=== PATIENT | female | born 1965 | race Caucasian/White ===

== ENCOUNTER 2016-07-23 12:08 | Emergency (ER) | payer MEDICAID, MEDICARE ==
[~2016-07-23] VITALS: Ht 165.1 cm; Wt 64.0 kg
[~2016-07-23 12:08] MED LIST: ALBU18HF INH; BUPR150T8 PO; CITA20TA PO; GABA-502 PO; GEMF600T3 PO; METH-313 PO; METO100T3 PO; NORT10CA PO; OMEP40CA3 PO; OXYC-466 PO; PROM25TA14 PO; SUMA20SP NS
[2016-07-23 12:12] VITALS: BP 151/91; PULSE 103; RESP 20; O2SAT 95
--- NOTE | 2016-07-23 13:30 | ED.REPORT ---
HPI-General Illness Date of Service Jul 23, 2016 ED Provider: Andres Sanchez MD 51 y/o female with a hx of HTN, kidney stones, endometriosis, UTIs, back injury and depression presents to the ED complaining of sharp upper ABD pain which worsens upon moving and eating, onset a week ago. Pt went to [facility] for ABD pain and was sent to [facility] after imaging. They were unable to take her gallbladder out and planned to transfer her to [place]. Pt reports that she was not being properly informed about her surgery at [facility], got frustrated and left AMA on Tuesday. Pt denies getting any follow up or surgery-based instructions from [facility]. She reports experiencing cough and subjective fever, which subsided today and denies dysuria. Pt takes Gabapentin and a muscle relaxer for chronic pain. Nursing Notes Stated Complaint: POST SURGERY/SUTURES Chief Complaint: General Complaint Allergies: Coded Allergies: lactose (Verified Allergy, Unknown, Dairy causes GI upset, 03/05/15) Scheduled Chlorthalidone (Chlorthalidone) 25 Mg Tablet 25 MG PO QAM Gabapentin (Gabapentin) 300 Mg Capsule 900 MG PO BIDWM 900 MG IN AM AND NOON, AND 1200 MG AT HS Gabapentin (Gabapentin) 300 Mg Capsule 1,200 MG PO HS 900 MG IN AM AND NOON, AND 1200 MG AT HS Gemfibrozil (Gemfibrozil) 600 Mg Tablet 600 MG PO BID Omeprazole (Omeprazole) 40 Mg Capsule.dr 40 MG PO QAM Scheduled PRN Albuterol Sulfate (Ventolin HFA Inhaler) 200 Puff/18 Gm Inhaler 1 PUFF INH Q4 PRN PRN For Wheezing Aspirin/Acetaminophen/Caffeine (Welhxzp-Cayfhjfkhqjuw-Wcqv Tab) 250 Mg-250 Mg- 65 Mg Tablet 2 EACH PO BID PRN PRN Headache Methocarbamol (Robaxin-750) 750 Mg Tablet 750-1,500 MG PO Q8H PRN PRN MUSCLE SPASMS Metoprolol Tartrate (Metoprolol Tartrate) 100 Mg Tablet 50 MG PO BID PRN PRN HYPERtension Nortriptyline (Nortriptyline) 10 Mg Capsule 10-20 MG PO HS PRN PRN For Insomnia Sumatriptan (Imitrex) 20 Mg [place] 20 MG NS DIRECTED PRN PRN For Headache 1 SPRAY AT ONSET OF MIGRAINE, MAY REPEAT IN 2 HRS IF NEEDED. MAX 2 SPRAYS IN 24 HRS General Time Seen by MD: 13:29 Chief Complaint Abdominal pain Hx Obtained From: Patient Arrived By: Walk-in Sudden in Onset?: No Onset Occurred: 1 week ago Symptom Duration: Since onset Location: : Abdomen Quality: Painful Severity: Current: Moderate Severity: Maximum: Moderate Recent Healthcare: Recent doctor visit, Recent hospitalization, Previous surgery Similar Sx Previous: No Past Medical History Past Medical History Notes: Per old records Past Medical History Kidney stones IBS Depression Endometriosis UTIs Back injury HTN Cholecystitis Reports: Asthma, GERD Past Surgical History Lithotripsy Spinal fusion x6 Liver LAC Ribs R collarbone Bilat Hip Repair Attempted choleocystectomy that was unsuccessful due to abdominal adhesions. Family History Noncontributory Smoking History Current Every Day Smoker, Heavy Tobacco Smoker Social History Alcohol Use: "Social" Drug Use: Other Other Social History: Local resident Ambulatory Status Independent Review of Systems Full Review of Systems Constitutional: Reports: Fever Respiratory: Reports: Non-productive cough GI: Reports: Abdominal pain Female: Denies: Dysuria Complete sys rev & neg: except as marked. Physical Exam Vital Signs Vital Signs Date Time Temp Pulse Resp B/P Pulse Ox O2 Delivery O2 Flow Rate FiO2 07/23/16 15:18 37 85 18 133/68 97 Nasal Cannula 2 07/23/16 12:12 37.3 103 20 151/91 95 Room Air Initial VS: Reviewed, Vital signs normal Head / Eyes: Atraumatic, Normocephalic, PERRL ENT: Mucous membranes moist, Conjunctiva normal, No scleral icterus Neck: Non-tender, Full range of motion Respiratory: Breath sounds normal, Clear to auscultation, No respiratory distress Neurologic: Alert, Oriented, Nonfocal Psychiatric: Mood/affect normal, Behavior normal, Normal thought content General/Constitutional: Awake, Alert, Cooperative, Not toxic appearing Cardiovascular: Heart rate NL, Regular rhythm, Heart sounds NL, No gallop, No murmurs, No rubs Radial pulses good. Abdomen: Soft, Non-tender, No guarding, No rebound Diffuse tenderness in epigastric and upper ABD. Well healed old vertical midline surgical scar. Diffuse ecchymosis on ABD wall. Well healing, closed laparoscopic surgical scars on ABD. No evidence of infection, abscess or cellulitis. Back: Atraumatic, Full range of motion Upper Extremities Upper Extremity / MS: Atraumatic, Full range of motion Lower Extremity / Pelvis / MS: Atraumatic, Full range of motion No calf swelling or tenderness. Skin: Atraumatic, Warm, Dry Interpretation & Diagnostics Lab Results Interpretation Result Diagram: 07/23/16 1550 07/23/16 1550 Test 07/23/16 14:05 07/23/16 15:50 07/23/16 16:11 Magnesium Level 1.5mg/dL (1.6-2.6) Lipase 185U/L (13-60) White Blood Count 9.6th/mm3 (3.8-10.1) Red Blood Count 2.49mil/mm3 (3.90-5.20) Hemoglobin 7.5g/dL (12.0-15.6) Hematocrit 23.5% (35.0-46.0) Mean Corpuscular Volume 94.4fL (81-100) Mean Corpuscular Hemoglobin 30.1pg (27.0-35.0) Mean Corpuscular Hemoglobin Concent 31.9% (32.0-37.0) Red Cell Distribution Width 20.3% (12.3-15.4) Platelet Count 424bil/L (150-400) Neutrophils (%) (Auto) 54.6% (40-74) Lymphocytes (%) (Auto) 28.5% (14-46) Monocytes (%) (Auto) 14.8% (4-12) Eosinophils (%) (Auto) 0.3% (0-5) Basophils (%) (Auto) 0.3% (0-3) Sodium Level 139mEq/L (134-144) Potassium Level 2.2mEq/L (3.5-5.2) Chloride Level 97mEq/L (97-108) Carbon Dioxide Level 30mmol/L (18-29) Blood Urea Nitrogen 2mg/dL (6-24) Creatinine 0.37mg/dL (0.57-1.00) Estimat Glomerular Filtration Rate 263mL/min (>59) Glucose Level 93mg/dL (60-99) Calcium Level 7.9mg/dL (8.5-10.1) Total Bilirubin 1.2mg/dL (0.0-1.2) Aspartate Amino Transf (AST/SGOT) 36U/L (0-50) Alanine Aminotransferase (ALT/SGPT) 24U/L (0-32) Alkaline Phosphatase 127U/L (25-150) Total Protein 5.5g/dL (6.4-8.4) Albumin 2.5g/dL (3.4-5.0) Hold Alves Top Tube Received (Received) Urine Color Yellow (YELLOW) Urine Appearance Clear (CLEAR,HAZY) Urine pH 8.0 (5.0-8.0) Urine Specific Strawberry 1.010 (1.003-1.035) Urine Protein Negativemg/dL (NEG,TRACE) Urine Glucose (UA) Negativemg/dL (NEGATIVE) Urine Ketones Negativemg/dL (NEGATIVE) Urine Occult Blood Negative (NEGATIVE) Urine Nitrite Negative (NEGATIVE) Urine Bilirubin Negative (NEGATIVE) Urine Urobilinogen Normalmg/dL (NORMAL) Urine Leukocyte Esterase Negative (NEGATIVE) Urine RBC 0-2/hpf (0-2) Urine WBC 0-5/hpf (0-5) Urine Epithelial Cells Many/hpf (NONE-MOD) Urine Crystals None seen (NONE SEEN) Urine Bacteria Few/hpf (NONE-FEW) Urine Hyaline Casts None/lpf (NONE) Urine Granular Casts None seen (NONE SEEN) Urine Waxy Casts None seen (NONE SEEN) Urine Red Blood Cell Casts None seen (NONE SEEN) Urine White Blood Cell Casts None seen (NONE SEEN) Urine Mucus None seen (None Seen) Urine Trichomonas None seen (NONE SEEN) Urine Yeast None (NONE SEEN) Urinalysis Comment None Urine Culture Reflexed Not indicated ECG Interpretation ECG Interpretation: Normal sinus rate 88 Left axis deviation No acute ST change Diffuse T wave flattening present No prior ekg for comparison. Time: 15:23 Interpreted by: ED physician X-Ray Chest Interpretation Chest Xray Interpretation: IMPRESSION: Focal opacity in the posterior aspect the left lung base suspicious for pneumonia. Please correlate with clinical and laboratory data. Dictated by: Kendra Lee MD, PhD on 07/23/2016 at 17:34 Interpretation / Wet Read by: Interpret - Radiologist CT Abd / Pelvis Interpretation IMPRESSION: 1. There is peripancreatic stranding and moderate amount of peripancreatic fluid collection consistent with acute pancreatitis. 2. The gallbladder wall appears irregular with mild thickening and demonstrates increased enhancement, suspicious for acute cholecystitis. Common bile duct is dilated. No obstructing stones or masses are identified. 3. There is a masslike structure in the anterior abdomen right of the midline. In the setting of recent surgery, this is most likely a hematoma. 4. Thickened gastric antrum and proximal duodenum, most likely secondary to direct spread of inflammation/infection from acute cholecystitis and pancreatitis. 5. Non-obstructive renal calculi bilaterally. 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 There are bilateral renal cysts. 6. Two ventral hernias are present in the anterior abdominal wall at midline above the umbilicus. 7. Pneumoperitoneum, most likely related to recent surgery. Clinical correlation, is recommended. 8. Small left effusion with left base atelectasis. 9. A subpleural nodule in the right lung base, which could represent a scar, atelectasis, or lung nodule. Recommend comparison to prior outside CT to assess stability. If clinically indicated, followup CT may be considered. 10. ? Segmental thickening of descending colon. In the absence of oral contrast, the appearance, however, could be caused by artifact. Dictated by: Saba Gaming M.D. on 07/23/2016 at 16:41 Study type: Abdominal CT IV contrast Interpretation / Wet Read by: Interpret - Radiologist, Discussed w radiologist Re-Eval/Medical Decision Med Decision/Clinical Course 51 y/o female with a hx of HTN, kidney stones, endometriosis, UTIs, back injury and depression presents to the ED complaining of sharp upper ABD pain which worsens upon moving and eating, onset a week ago. Pt went to [facility] for ABD pain and was sent to [facility] after imaging. They were "unable to take her gallbladder out and planned to transfer her to [place]". Pt reports that she was "not being properly informed about her surgery at [facility]", got frustrated and left AMA on Tuesday. Pt denies getting any follow up or surgery-based instructions from [facility]. She reports experiencing cough and subjective fever, which subsided today and denies dysuria. Pt takes Gabapentin and a muscle relaxer for chronic pain. Here in the emergency department the patient is afebrile, hemodynamically stable and in no apparent distress with examination as above. Obtained records from pt's recent hospitalization at [facility] in [place]. CT scan obtained at [facility] on 07/16/2016, which demonstrated enlarged common bile ducts. Common bile ducts couldn't be ruled in or out, multiple gallstones, findings suggestive of acute cholecystitis. US of gall bladder obtained on 07/16/16 which was also consistent with acute cholecystitis. Pt was again noted to have enlarged common bile duct but couldn' t determine if bile duct stones were present. Pt was taken to surgery with plan for laparoscopic cholecystectomy. However pt was noted to have "abnormal internal architecture due to adhesions" and procedure was aborted. Pt underwent MRCP on 07/17/2016, which demonstrated common bile duct measuring 10cm. Also findings suggested acute pancreatitis as well as possible acute cholecystitis. Exam was again "limited" There was no discharge summary sent from [facility] for this pt. There was no mention in her paperwork of whether she eloped or why she eloped or what the plan going forward was regarding cholecystitis, pancreatitis and dilated common bile duct. Laboratory studies obtained today notable as below: Mild leukocytosis of 10.6 Hematocrit: 24.2 Platelets: 445 Sodium = 138 Potassium = 2.2 BUN = 2 Creatinine = 0.41 Transaminase = normal Lipases = elevated to 185 Bilirubin = 1.4 Magnesium = 1.5 Calcium = 8.4 Of note I reviewed the patient's prior laboratory studies from [facility] and her difficulty and collected joint arrangements are new from discharge though she was borderline hypokalemic during her stay. I additionally repeated the patient's for studies which confirmed the above electrolyte abnormalities. ABDOMINAL CT IMPRESSION: 1. There is peripancreatic stranding and moderate amount of peripancreatic fluid collection consistent with acute pancreatitis. 2. The gallbladder wall appears irregular with mild thickening and demonstrates increased enhancement, suspicious for acute cholecystitis. Common bile duct is dilated. No obstructing stones or masses are identified. 3. There is a masslike structure in the anterior abdomen right of the midline. In the setting of recent surgery, this is most likely a hematoma. 4. Thickened gastric antrum and proximal duodenum, most likely secondary to direct spread of inflammation/infection from acute cholecystitis and pancreatitis. 5. Non-obstructive renal calculi bilaterally. 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 There are bilateral renal cysts. 6. Two ventral hernias are present in the anterior abdominal wall at midline above the umbilicus. 7. Pneumoperitoneum, most likely related to recent surgery. Clinical correlation , is recommended. 8. Small left effusion with left base atelectasis. 9. A subpleural nodule in the right lung base, which could represent a scar, atelectasis, or lung nodule. Recommend comparison to prior outside CT to assess stability. If clinically indicated, followup CT may be considered. 10. Segmental thickening of descending colon. In the absence of oral contrast, the appearance, however, could be caused by artifact. CXR IMPRESSION: Focal opacity in the posterior aspect the left lung base suspicious for pneumonia. Please correlate with clinical and laboratory data. Treated pt with IV Magnesium and Potassium for electrolyte repletion. Vanc/Zosyn started for hospital acquired pneumonia. Patient discussed in depth with Dr. Cornejo at [facility]. Dr. Cornejo additionally reviewed this case with the surgeon who cared for her during her admission at [facility] Dr. Mishra. From our conversation and from what I can gather speaking with the patient's/reviewing charts the decision was made to not proceed with open cholecystectomy due to extensive adhesions. After aborted surgical operation the patient had a HIDA scan which was less convincing for acute cholecystitis. Meanwhile, they had opted to treat the patient medically though she ended up eloping the hospital. Both Dr. Cornejo and Dr. Mishra declined to accept the patient back at [facility] and states that she does not require any surgical intervention at this moment. Patient was discussed with our surgeon here at [facility] Dr. Do. The patient's records from [facility] were again reviewed and Dr. Do discussed with surgical team there. It is felt that the patient likely does require cholecystectomy however our surgeons here at [facility] and [facility] are both not comfortable proceeding with surgery given the patient's failed previous attempts and multiple adhesions. It is recommended that the patient be transferred to [facility] for evaluation by surgical coder. Patient was discussed with Dr. Ramon Oneil at who accepts the patient. Source of Hx: Old records Time of Eval: 16:53 Re-Evaluation/Progress Note: Informed the pt of lab and imaging results and diagnosis, Discussed plan to transfer to [facility]. Pt understood and agreed with the plan. Time of Eval: 17:44 Re-Evaluation/Progress Note: The patient is aware of plan to admit to [facility] instead. She understands and agrees. All questions were addressed. Counseled Regarding: Diagnosis, Lab results, Need for admission Discharge & Departure Primary Impression: Nausea & vomiting Vomiting type: unspecified Vomiting Intractability: unspecified Qualified Code: R11.2 - Nausea with vomiting, unspecified Additional Impressions: Pancreatitis Chronicity: acute Pancreatitis type: unspecified pancreatitis type Acute pancreatitis complication: unspecified Qualified Code: K85.90 - Acute pancreatitis without necrosis or infection, unspecified Hypokalemia Acute cholecystitis Abdominal adhesions Abdominal pain Abdominal location: unspecified location Qualified Code: R10.9 - Unspecified abdominal pain Dehydration Anemia Anemia type: unspecified type Qualified Code: D64.9 - Anemia, unspecified Hypoxia Hospital-acquired pneumonia Disposition: ADMITTED TO HOSPITAL Discharge Condition All VS Reviewed: Yes Condition: Stable Referrals: Agustín Kelly DO (PCP) Jazmine Lucero MD (Family) Crit Care Except Billable Proc Time Spent: >225 minutes Services Performed: Patient management by me, Time spent at bedside, Reviewing test results, Reviewing imaging, Discussing patient care, Documentation in record, Time with fam/surrogate Critical Care Notes: Discussions with multiple specialists in multiple different facilities, reviewing outside records, discussions with our surgeons, arranging transfer, documentation. Scribe Attestation Portions of this note were transcribed by Aleksey Rm and Whitley Monique . I, personally performed the history, physical exam and medical decision-making;I reviewed and confirmed the accuracy of the information in the transcribed note. Signed by Aleksey Monique, Scribe. 07/23/16 1800. copies to: Agustín Kelly Suzanne MD [place], Beck O MD Jul 23, 2016 13:30 Aleksey Rm Jul 23, 2016 13:55 Whitley Monique Jul 23, 2016 15:39
[2016-07-23] MEDS ORDERED: 0.9% Sodium Chloride 1,000 ML IV ONE ×2 (13:49→15:05)
[2016-07-23] MEDS ORDERED: Ondansetron 2 mg/mL 2 mL Inj IVPUSH ONE (13:50)
[2016-07-23] MEDS: HYDROmorphone 0.5 mg/0.5 mL iSecure Syringe IVPUSH PRN ×3 (14:05→20:21)
[2016-07-23 14:08] LABS: EOSINOPHILS % (AUTO) 0.3 % (0-5)
[2016-07-23 14:12] LABS: BASOPHILS % (AUTO) 0.3 % (0-3); MONOCYTES % (AUTO) 16.4 % (4-12); Mean Corpuscular Hemoglobin 30.4 pg (27.0-35.0); Mean Corpuscular Volume 93.1 fL (81-100); NEUTROPHILS % (AUTO) 55.7 % (40-74); Platelet Count 445 bil/L (150-400)
[2016-07-23 14:36] LABS: Magnesium 1.5 mg/dL (1.6-2.6)
[2016-07-23] MEDS ORDERED: Potassium Chloride 20 mEq SR Tablet PO ONE (15:05)
[2016-07-23] MEDS ORDERED: Magnesium Sulf 2 Gm/50mL Water 1 GM in IV Premix 1 EACH IV ONE (15:05)
[2016-07-23] MEDS ORDERED: KCl 40 mEq/D5W 500 mL 40 MEQ in IV Premix 1 EACH IV ONE (15:05)
[2016-07-23 15:18] VITALS: BP 133/68; PULSE 85; RESP 18; O2SAT 97
[2016-07-23 16:03] LABS: BASOPHILS % (AUTO) 0.3 % (0-3); EOSINOPHILS % (AUTO) 0.3 % (0-5)
[2016-07-23 16:07] LABS: MONOCYTES % (AUTO) 14.8 % (4-12); Mean Corpuscular Hemoglobin 30.1 pg (27.0-35.0); Mean Corpuscular Volume 94.4 fL (81-100); NEUTROPHILS % (AUTO) 54.6 % (40-74); Platelet Count 424 bil/L (150-400)
[2016-07-23 16:25] LABS: APPEARANCE,URINE CLEAR (CLEAR,HAZY); COLOR,URINE YELLOW (YELLOW); OCCULT BLOOD,URINE NEGATIVE (NEGATIVE); UROBILINOGEN,URINE NORMAL (NORMAL)
--- NOTE | 2016-07-23 17:25 | DRSVH ---
PROCEDURE: CT ABDOMEN AND PELVIS WITH CONTRAST ([id number]) INDICATIONS: 52 year-old woman with history of attempted laparascopic cholecystectomy presents with abdominal pain. TECHNIQUE: After the administration of intravenous contrast, 5 mm thick sections acquired from the diaphragm to the symphysis. 5 mm coronal and sagittal reformats were acquired. For radiation dose reduction, the following was used: automated exposure control, adjustment of mA and/or kV according to patient siz e. COMPARISON: [facility], CT, CT KUB, 12/30/2014, 12:12. The patient has more recent studie s including CT, ultrasound, MRCP from [facility]. These images are not available for compari son. FINDINGS: Image quality: Excellent. ABDOMEN: Lung bases: Small left effusion with left basilar atelectasis. A 1.6 cm irregular nodule is seen in the right lung base adjacent to the major fissure laterally. Heart size is normal. Solid organs: There is severe hepatic fatty infiltration. Surgical clips are noted in the posterior medial aspect of the liver, compatible with prior surgical resection. Liver is slightly prominent nor mal in size. Spleen is normal in size. Gallbladder wall is irregular and mildly thickened, demonstrating increased enhancement suspicious fo r acute cholecystitis. No definitive gallstones visualized. There is no intrahepatic biliary dilation . Common bile duct is dilated measuring up to 11 mm. No definite obstructing stones or masses are idalia ntified. The tail of the pancreas is truncated. There is peripancreatic stranding and moderate amount of perip ancreatic fluid collection consistent with acute pancreatitis. There is no pancreatic duct dilation. No evidence for pancreatic necrosis. No adrenal nodules. Kidneys are malrotated and demonstrate normal size and enhancement, without hydr onephrosis. There is a 1.2 cm cyst in left kidney and a 1.2 cm cyst in the right kidney. Bilateral n onobstructive renal calculi are present. Peritoneum and bowel: There is trace pneumoperitoneum, presumably related to recent laparoscopic althea shaggy. The gastric antrum and possible duodenum are thickened, likely secondary to direct spread of in flammation related to acute cholecystitis and/pancreatitis. There is a small amount of free fluid in the lesser sac. Scattered colonic diverticula are present. No evidence for acute diverticulitis. Ther e may be segmental thickening of descending colon. In the absence of oral contrast, the appearance, h owever, could be caused by artifact. There is amorphous masslike structure in the anterior abdomen right of midline below the transverse c olon, which does not connect to adjacent bowel. It measures 5.6 x 4.1 x 8.0 cm. Nodes and vessels: No retroperitoneal or mesenteric adenopathy by size criteria. Aorta and inferior vena cava are normal in size. Moderate calcification distal aorta. Miscellaneous: There are 2 ventral hernias in the anterior abdominal wall above the umbilicus. The more superior hernia is anterior to the transverse colon and demonstrates pockets of air within the h ernia sac. The more inferior hernia as are omental fat. PELVIS: Genitourinary: The bladder is distended. Bladder wall thickness is normal. Miscellaneous: No inguinal hernias or adenopathy. Bones: There are prior surgeries in sacrum and iliac bones bilaterally. Old pelvic fractures are not ed. No suspicious bony lesions. Degenerative changes are present in lumbar spine. IMPRESSION: 1. There is peripancreatic stranding and moderate amount of peripancreatic fluid collection consisten t with acute pancreatitis. 2. The gallbladder wall appears irregular with mild thickening and demonstrates increased enhancement , suspicious for acute cholecystitis. Common bile duct is dilated. No obstructing stones or masses ar e identified. 3. There is a masslike structure in the anterior abdomen right of the midline. In the setting of rece nt surgery, this is most likely a hematoma. 4. Thickened gastric antrum and proximal duodenum, most likely secondary to direct spread of inflamma tion/infection from acute cholecystitis and pancreatitis. 5. Non-obstructive renal calculi bilaterally. 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 There are bilateral renal cysts . 6. Two ventral hernias are present in the anterior abdominal wall at midline above the umbilicus. 7. Pneumoperitoneum, most likely related to recent surgery. Clinical correlation, is recommended. 8. Small left effusion with left base atelectasis. 9. A subpleural nodule in the right lung base, which could represent a scar, atelectasis, or lung nod ule. Recommend comparison to prior outside CT to assess stability. If clinically indicated, followup CT may be considered. 10. ? Segmental thickening of descending colon. In the absence of oral contrast, the appearance, blackman rafa, could be caused by artifact. Dictated by: Saba Gaming M.D. on 07/23/2016 at 16:41 Approved by: Saba Gaming M.D. on 07/23/2016 at 17:23
[2016-07-23] MEDS ORDERED: Alum-Mag Hydrox-Simeth 30 mL Suspension PO PRN (17:35)
[2016-07-23] MEDS ORDERED: Ondansetron 2 mg/mL 2 mL Inj IVPUSH PRN (17:35)
--- NOTE | 2016-07-23 17:37 | DRSVH ---
PROCEDURE: X-RAY CHEST, TWO VIEWS ([id number]) INDICATIONS: SHORTNESS OF BREATH TECHNIQUE: 2 views of the chest were acquired. COMPARISON: [facility], CR, CHEST 2VW, 01/14/2010, 12:47. [facility], CR, X R CHEST 1VW (PORTABLE), 12/22/2015, 19:34. FINDINGS: Surgical changes and devices: Cervical spine fixation hardware. Right upper quadrant abdomen surgic al clips and sutures. Lungs and pleura: No pleural effusions or pneumothorax. Focal opacity noted in left lung base suspic ious for pneumonia versus atelectasis. Mediastinum: Mediastinal contours are normal. Heart size is normal. Bones and chest wall: S-shaped scoliosis of the thoracolumbar spine is noted. No suspicious bony ab normalities. Soft tissues appear unremarkable. IMPRESSION: Focal opacity in the posterior aspect the left lung base suspicious for pneumonia. Plea se correlate with clinical and laboratory data. Dictated by: Kendra Lee MD, PhD on 07/23/2016 at 17:34 Approved by: Kendra Lee MD, PhD on 07/23/2016 at 17:35
[2016-07-23] MEDS ORDERED: GABA-502 PO (17:48)
[2016-07-23] MEDS ORDERED: HYG25 PO (17:52)
[2016-07-23] MEDS ORDERED: OMEP40CA36 PO (17:53)
[2016-07-23] MEDS ORDERED: ASPI-1148 PO (17:54)
[2016-07-23] MEDS ORDERED: Vancomycin Dose per Pharmacist XX ONE (18:20)
[2016-07-23] MEDS ORDERED: Piperacillin-Tazo 3.375 Gm Inj 3.375 GM in Dextrose 5% Minibag Plus 50 ML IV ONE (18:20)
[2016-07-23] MEDS ORDERED: Vancomycin Inj 1,250 MG in 0.9% Sodium Chloride 250 ML IV ONE (19:15)
[2016-07-23 20:33] VITALS: BP 126/75; RESP 18; O2SAT 96
== END 2016-07-23 20:34 | disposition short-term general hospital (02) ==
LOC: SED 12:08
DX: K85.90 Acute pancreatitis without necrosis or infection, unspecified (principal); K81.0 Acute cholecystitis; D64.9 Anemia, unspecified; E86.0 Dehydration; J18.9 Pneumonia, unspecified organism; E87.6 Hypokalemia; K66.0 Peritoneal adhesions (postprocedural) (postinfection); I10 Essential (primary) hypertension; K21.9 Gastro-esophageal reflux disease without esophagitis; J45.909 Unspecified asthma, uncomplicated; F17.200 Nicotine dependence, unspecified, uncomplicated; Z79.82 Long term (current) use of aspirin; E73.9 Lactose intolerance, unspecified
CPT/HCPCS: 36415; 71020; 74177; 80053; 81000; 81025; 83690; 83735; 85025; 86850; 87040; 93005; 96361; 96365; 96366; 96368; 96375; 96376; 99291; 99292; J1170; J2405; J2543; J3480; J7030; Q9967

== ENCOUNTER 2016-11-10 18:31 | Emergency (ER) | payer MEDICARE ==
[~2016-11-10] VITALS: Ht 165.1 cm; Wt 68.2 kg
[~2016-11-10 18:31] MED LIST changes: +ASPI-1148 PO; -BUPR150T8 PO; -CITA20TA PO; +HYG25 PO; -OMEP40CA3 PO; +OMEP40CA36 PO; -OXYC-466 PO; -PROM25TA14 PO
[2016-11-10 19:15] VITALS: BP 163/98; PULSE 92; RESP 16; O2SAT 98
[2016-11-10] MEDS ORDERED: 0.9% Sodium Chloride 1,000 ML IV ONE ×2 (19:23→22:25)
[2016-11-10] MEDS ORDERED: Ondansetron 2 mg/mL 2 mL Inj IVPUSH ONE (19:25)
[2016-11-10] MEDS: HYDROmorphone 0.5 mg/0.5 mL iSecure Syringe IVPUSH PRN ×3 (20:32→22:51)
[2016-11-10 20:37] LABS: BASOPHILS % (AUTO) 0.4 % (0-3)
[2016-11-10 20:40] LABS: EOSINOPHILS % (AUTO) 0.6 % (0-5); MONOCYTES % (AUTO) 5.5 % (4-12); Mean Corpuscular Hemoglobin 23.8 pg (27.0-35.0); Mean Corpuscular Volume 77.1 fL (81-100); NEUTROPHILS % (AUTO) 77.3 % (40-74); Platelet Count 652 bil/L (150-400)
[2016-11-10 21:00] LABS: Magnesium 1.8 mg/dL (1.6-2.6)
--- NOTE | 2016-11-10 21:10 | ED.REPORT ---
HPI-General Illness Date of Service Nov 10, 2016 ED Provider: Andres Sanchez MD The patient is a 51 year old female with a history of hypertension, pancreatitis , kidney stones, endometriosis, UTIs, back injury and depression who presents to the ED with severe aching abdominal pain that began this afternoon. Patient is also complaining of nausea and vomiting. Her symptoms are not relieved by anything and her pain does not radiate. Patient was previously transferred to [facility] for similar symptoms previously and was diagnosed with cholecystitis/ascending cholangitis. They recommended that she have a cholecystectomy and the patient has been reluctant to have the surgery, she has subsequently been lost to follow-up at the presenting back to the emergency department today. Nursing Notes Stated Complaint: UPPER ABDOMINAL PAIN Chief Complaint: Female Abdominal Pain Nursing Notes Reviewed: Yes Allergies: Coded Allergies: lactose (Verified Allergy, Unknown, Dairy causes GI upset, 11/10/16) Scheduled Chlorthalidone (Chlorthalidone) 25 Mg Tablet 25 MG PO QAM Gabapentin (Gabapentin) 300 Mg Capsule 900 MG PO BIDWM 900 MG IN AM AND NOON, AND 1200 MG AT HS Gabapentin (Gabapentin) 300 Mg Capsule 1,200 MG PO HS 900 MG IN AM AND NOON, AND 1200 MG AT HS Gemfibrozil (Gemfibrozil) 600 Mg Tablet 600 MG PO BID Omeprazole (Omeprazole) 40 Mg Capsule.dr 40 MG PO QAM Scheduled PRN Albuterol Sulfate (Ventolin HFA Inhaler) 200 Puff/18 Gm Inhaler 1 PUFF INH Q4 PRN PRN For Wheezing Aspirin/Acetaminophen/Caffeine (Ncqdmfm-Ealofpyukvjxz-Iygd Tab) 250 Mg-250 Mg- 65 Mg Tablet 2 EACH PO BID PRN PRN Headache Methocarbamol (Robaxin-750) 750 Mg Tablet 750-1,500 MG PO Q8H PRN PRN MUSCLE SPASMS Metoprolol Tartrate (Metoprolol Tartrate) 100 Mg Tablet 50 MG PO BID PRN PRN HYPERtension Nortriptyline (Nortriptyline) 10 Mg Capsule 10-20 MG PO HS PRN PRN For Insomnia Sumatriptan (Imitrex) 20 Mg [place] 20 MG NS DIRECTED PRN PRN For Headache 1 SPRAY AT ONSET OF MIGRAINE, MAY REPEAT IN 2 HRS IF NEEDED. MAX 2 SPRAYS IN 24 HRS General Time Seen by MD: 19:23 Chief Complaint Abdominal pain Hx Obtained From: Patient Arrived By: Walk-in Sudden in Onset?: No Onset Occurred: 1 - 4 hours ago Symptom Duration: Since onset Location: : Abdomen Quality: Cramping Radiation: : Does not radiate Severity: Current: Moderate Severity: Maximum: Moderate Associated with: Reports: Abdominal pain, Nausea, Vomiting Pertinent Negative: Pt denies other symptoms Recent Healthcare: No recent hospitalization, Recent doctor visit Past Medical History Past Medical History Kidney stones IBS Depression Endometriosis UTIs Back injury HTN Cholecystitis Reports: Asthma, GERD Past Surgical History Lithotripsy Spinal fusion x6 Liver LAC Ribs R collarbone Bilat Hip Repair Attempted choleocystectomy that was unsuccessful due to abdominal adhesions. Family History Noncontributory Smoking History Current Every Day Smoker, Heavy Tobacco Smoker Social History Alcohol Use: "Social" Drug Use: Other Other Social History: Local resident Ambulatory Status Independent Review of Systems Full Review of Systems GI: Reports: Abdominal pain, Nausea, Vomiting Complete sys rev & neg: except as marked. Physical Exam Vital Signs Vital Signs Date Time Temp Pulse Resp B/P Pulse Ox O2 Delivery O2 Flow Rate FiO2 11/10/16 23:10 36.5 97 16 164/90 97 Room Air 11/10/16 19:15 36.4 92 16 163/98 98 Room Air Initial VS: Reviewed Neck: Supple, Non-tender, Full range of motion Extremities: Vascular intact, Neuro intact, No swelling, No tenderness Skin: Warm, Dry, No cyanosis Neurologic: Alert, Oriented, Nonfocal Psychiatric: Mood/affect normal, Behavior normal, Normal thought content General/Constitutional: Awake, Alert, No acute distress Appearance / Presentation: Positive: Uncomfortable Head / Eyes: Atraumatic, Normocephalic, PERRL Respiratory / Chest: Atraumatic, Breath sounds NL, Breath sounds = bilat, No respiratory distress Cardiovascular: Heart rate NL, Regular rhythm, Heart sounds NL, No gallop, No murmurs, No rubs Abdomen: Atraumatic, Soft, No guarding, No rebound, No distention Tenderness/Guarding/Rebound: Positive: Tender RUQ..., Tender epigastric No rigidity Well healing midline scar to the abdomen without any erythema, swelling or warmth. Interpretation & Diagnostics Lab Results Interpretation Result Diagram: 11/10/16201911/10/16 2020 Test 11/10/16 20:20 11/10/16 22:46 White Blood Count 15.5th/mm3 (3.8-10.1) Red Blood Count 4.28mil/mm3 (3.90-5.20) Hemoglobin 10.2g/dL (12.0-15.6) Hematocrit 33.0% (35.0-46.0) Mean Corpuscular Volume 77.1fL (81-100) Mean Corpuscular Hemoglobin 23.8pg (27.0-35.0) Mean Corpuscular Hemoglobin Concent 30.9% (32.0-37.0) Red Cell Distribution Width 20.6% (12.3-15.4) Platelet Count 652bil/L (150-400) Neutrophils (%) (Auto) 77.3% (40-74) Lymphocytes (%) (Auto) 15.8% (14-46) Monocytes (%) (Auto) 5.5% (4-12) Eosinophils (%) (Auto) 0.6% (0-5) Basophils (%) (Auto) 0.4% (0-3) Sodium Level 137mEq/L (134-144) Potassium Level 3.2mEq/L (3.5-5.2) Chloride Level 93mEq/L (97-108) Carbon Dioxide Level 23mmol/L (18-29) Blood Urea Nitrogen 14mg/dL (6-24) Creatinine 0.68mg/dL (0.57-1.00) Estimat Glomerular Filtration Rate 130mL/min (>59) Glucose Level 131mg/dL (60-99) Calcium Level 9.5mg/dL (8.5-10.1) Magnesium Level 1.8mg/dL (1.6-2.6) Total Bilirubin 0.2mg/dL (0.0-1.2) Aspartate Amino Transf (AST/SGOT) 24U/L (0-50) Alanine Aminotransferase (ALT/SGPT) 12U/L (0-32) Alkaline Phosphatase 87U/L (25-150) Total Protein 8.5g/dL (6.4-8.4) Albumin 4.7g/dL (3.4-5.0) Lipase 5654U/L (13-60) Lactic Acid Level 2.5mmol/L (0.4-2.0) CT Abd / Pelvis Interpretation IMPRESSION: 1. Peripancreatic inflammation and fluid compatible with acute pancreatitis. 2. 3 mm calcified stone in the expected region of the ampulla of the common bile duct. Recommend gastroenterology consultation. 3. Probable right paramedian omental hematoma identified 07/23/16 has almost completely resolved. 4. Cholelithiasis. Gallbladder wall is prominent. There is clinical concern for cholelithiasis, then abdominal ultrasound should be performed for further evaluation. 5. Right lower lobe subpleural nodule stable compared to prior exam. 6. Postsurgical changes compatible with ORIF of pelvic fractures and multiple surgical clips noted in the posterior liver. 7. Hepatic steatosis. 8. Nonobstructing bilateral renal stones. Dictated by: Kendra Lee MD, PhD on 11/10/2016 at 21:37 Study type: Abdominal CT IV contrast, Abdom CT oral contrast Interpretation / Wet Read by: Interpret - Radiologist Re-Eval/Medical Decision Med Decision/Clinical Course Patient is a 51-year-old female with complicated GI history including remote traumatic injury resulting in exploratory laparotomy and multiple abdominal adhesions. She was admitted at [facility] approximately 4 months ago and they attempted to perform laparoscopic cholecystectomy for acute cholecystitis though were unsuccessful due to the extent of her adhesions. She subsequently eloped during that admission and presented here to [facility] where she was sent to [facility] for specialty GI intervention. I am unable to obtain the records from that visit however it sounds as if she underwent ERCP and IV antibiotics with plan for subsequent follow-up and cholecystectomy however has been lost to follow-up. She is now presenting to our emergency department complaining of nausea, vomiting and severe abdominal pain. Here in the emergency department she is clinically stable and afebrile with examination as documented above. He was treated with IV fluids, Zofran and hydromorphone with good effect. She was placed on maintenance fluid Labs Leukocytosis 15.5 Hct 33 K+ 3.2 transaminases and total bilirubin within normal limits. Lipase 5640 CT Abd/pelvis 1. Peripancreatic inflammation and fluid compatible with acute pancreatitis. 2. 3 mm calcified stone in the expected region of the ampulla of the common bile duct. Recommend gastroenterology consultation. 3. Probable right paramedian omental hematoma identified 07/23/16 has almost completely resolved. 4. Cholelithiasis. Gallbladder wall is prominent. There is clinical concern for cholelithiasis, then abdominal ultrasound should be performed for further evaluation. 5. Right lower lobe subpleural nodule stable compared to prior exam. 6. Postsurgical changes compatible with ORIF of pelvic fractures and multiple surgical clips noted in the posterior liver. 7. Hepatic steatosis. 8. Nonobstructing bilateral renal stones. Presentation consistent with gallstone pancreatitis. She is afebrile at this time though has marked elevation of her lipase was normal transaminases and leukocytosis. Patient was discussed with treatment team at [facility] and it is felt that she would benefit from transfer. They have recommended that we defer antibiotics at this time though we have aggressively treated her with IV fluids given her apparent pancreatitis. She will likely require ERCP and still needs cholecystectomy. Patient has been accepted for transfer by [facility] ambulance and all appropriate EMTALA paperwork has been completed. Patient was transferred in stable condition. Time of Eval: 22:11 Patient Status: Condition improved Re-Evaluation/Progress Note: The patient's symptoms have improved upon recheck. She is informed of her results and the plan to transfer to Time of Eval: 22:31 Re-Evaluation/Progress Note: The patient understands and agrees with the intended treatment plan. Consultation : Call Returned at: 22:11 Scheduling Representative: Will see patient, Agrees with eval, Agrees with plan, Accepts admit Note: [facility] - Dr. Wooten Discussed patient condition. Accepts admission. Counseled Regarding: Diagnosis, Lab results, Need for transfer Discharge & Departure Primary Impression: Gallstone pancreatitis Additional Impressions: Epigastric abdominal pain Elevated lipase Leukocytosis Leukocytosis type: unspecified Qualified Code: D72.829 - Elevated white blood cell count, unspecified Sudden onset of severe abdominal pain Noncompliance Disposition: Transfer, Acute Care Facility ([facility]) Transfer Accepted: Yes Transfer Accepted at: 22:14 Transfer Reason: Higher level of care, Patient request Spoke with: Specialty physician (Dr. Wooten) Patient Status: Stable for transfer Patient Informed: Yes Discharge Condition All VS Reviewed: Yes Condition: Stable Referrals: Jazmine Lucero MD (PCP) Crit Care Except Billable Proc Time Spent: 135-164 minutes Services Performed: Patient management by me, Time spent at bedside, Reviewing test results, Reviewing imaging, Discussing patient care, Documentation in record, Time with fam/surrogate Critical Care Notes: Reviewing old records, obtaining old records, multiple consultations with treatment team at [facility] and arranging transport Scribe Attestation Portions of this note were transcribed by Jhoana Mccann. I, Dr. Sanchez personally performed the history, physical exam and medical decision-making; I reviewed and confirmed the accuracy of the information in the transcribed note. copies to: Jazmine Lucero MD,Andres Nino MD Nov 10, 2016 21:10 JHOANA MCCANN Nov 10, 2016 22:13
--- NOTE | 2016-11-10 21:49 | DRSVH ---
PROCEDURE: CT ABDOMEN AND PELVIS WITH CONTRAST ([id number]) INDICATIONS: upper abd pain TECHNIQUE: After the administration of intravenous contrast, 5 mm thick sections acquired from the diaphragm to the symphysis. 5 mm coronal and sagittal reformats were acquired. For radiation dose reduction, the following was used: automated exposure control, adjustment of mA and/or kV according to patient hari badillo. COMPARISON: [facility], CT, CT ABD PELVIS W CON, 07/23/2016, 16:12. FINDINGS: Image quality: Excellent. ABDOMEN: Lung bases: Lung bases are clear of acute opacities. Small subpleural nodule in the right lung base is stable compared to prior examination.. Heart size is normal. Solid organs: Liver and spleen are normal in size and enhancement. Multiple surgical clips noted in the posterior margin of the liver which are stable compared to prior examination. Diffuse fatty infi ltration of the liver is noted. Gallbladder contains multiple gallstones. Gallbladder wall is promi nent and acute cholecystitis cannot be excluded.. Biliary system is non dilated. Pancreas enhances normally. Inflammatory changes and free fluid noted adjacent to the pancreas compatible with pancreat itis. There is a 3 mm in diameter calcified stone in the expected region of the ampulla of the commo n bile duct (series 2, image 36). No adrenal nodules. Kidneys demonstrate normal size and enhancemen t, without hydronephrosis. 4 mm nonobstructing right renal stone is stable. 3 mm nonobstructing left renal stone is stable. Left renal cyst is stable. 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 The soft tissue dens ity mass in the right paramedian omentum is decreased in size compared to 07/23/2016 measuring 1.6 cm in diameter in the current study. Peritoneum and bowel: Bowel loops demonstrate normal wall thickness and caliber. No free fluid or a ir. Nodes and vessels: No retroperitoneal or mesenteric adenopathy by size criteria. Aorta and inferior vena cava are normal in size. Scattered atherosclerotic calcifications are noted in the abdominal an d pelvic vasculature. Miscellaneous: Fat-containing, supraumbilical ventral hernias are stable compared to the prior exami nation. PELVIS: Genitourinary: Bladder wall thickness is normal. Miscellaneous: No inguinal hernias or adenopathy. Bones: No suspicious bony lesions. No vertebral body compression fractures. Patient status post SUZY F of pelvic fractures. Spine degenerative disease and facet arthropathy noted. Convex left spine scol iosis noted. Comparing right L2, L3 and L4 transverse process fracture is noted. IMPRESSION: 1. Peripancreatic inflammation and fluid compatible with acute pancreatitis. 2. 3 mm calcified stone in the expected region of the ampulla of the common bile duct. Recommend ga stroenterology consultation. 3. Probable right paramedian omental hematoma identified 07/23/16 has almost completely resolved. 4. Cholelithiasis. Gallbladder wall is prominent. There is clinical concern for cholelithiasis, th en abdominal ultrasound should be performed for further evaluation. 5. Right lower lobe subpleural nodule stable compared to prior exam. 6. Postsurgical changes compatible with ORIF of pelvic fractures and multiple surgical clips noted i n the posterior liver. 7. Hepatic steatosis. 8. Nonobstructing bilateral renal stones. Dictated by: Kendra Lee MD, PhD on 11/10/2016 at 21:37 Approved by: Kendra Lee MD, PhD on 11/10/2016 at 21:48
[2016-11-10] MEDS ORDERED: 0.9% Sodium Chloride 1,000 ML IV SCH (22:25)
[2016-11-10 23:10] VITALS: BP 164/90; PULSE 97; RESP 16; O2SAT 97
[2016-11-11] MEDS: HYDROmorphone 0.5 mg/0.5 mL iSecure Syringe IVPUSH PRN (00:07)
== END 2016-11-11 00:15 | disposition short-term general hospital (02) ==
LOC: SED 18:31
DX: K85.10 Biliary acute pancreatitis without necrosis or infection (principal); R74.8 Abnormal levels of other serum enzymes; D72.89 Other specified disorders of white blood cells; K21.9 Gastro-esophageal reflux disease without esophagitis; I10 Essential (primary) hypertension; J45.909 Unspecified asthma, uncomplicated; F17.200 Nicotine dependence, unspecified, uncomplicated; Z91.19 Patient's noncompliance with other medical treatment and regimen; Z87.19 Personal history of other diseases of the digestive system; Z87.440 Personal history of urinary (tract) infections; Z87.442 Personal history of urinary calculi; Z91.011 Allergy to milk products; Z79.51 Long term (current) use of inhaled steroids; Z79.82 Long term (current) use of aspirin
CPT/HCPCS: 36415; 74177; 80053; 83605; 83690; 83735; 85025; 96374; 96375; 96376; 99291; 99292; J1170; J2405; J7030; Q9967